=== PATIENT | male | born 1995 | race Caucasian/White ===

== ENCOUNTER 2021-07-26 05:24 | Observation (INO) | payer OTHER ==
[2021-07-26] MEDS ORDERED: SODIUM CHLORIDE FLUSH 0.9% 10 ML SYRINGE IVP PRN (05:35)
[2021-07-26 06:27] LABS: BASOPHILS % (AUTO) 0.3 %; EOSINOPHILS # (AUTO) 0.2 10^3/uL (0.0-0.7); EOSINOPHILS % (AUTO) 2.2 %; HCT - HEMATOCRIT 45.4 % (42.0-52.0); HGB - HEMOGLOBIN 16.6 g/dL (14.0-18.0); LYMPHOCYTES # (AUTO) 3.9 10^3/uL (1.5-3.5); LYMPHOCYTES % (AUTO) 51.4 %; MEAN CORPUSCULAR HEMOGLOBIN 30.6 pg (27.0-31.0); MEAN CORPUSCULAR HGB CONC 36.6 g/dL (32.0-36.0); MEAN CORPUSCULAR VOLUME 83.8 fL (80.0-94.0); MEAN PLATELET VOLUME 9.9 fL (7.4-11.4); MONOCYTES # (AUTO) 0.6 10^3/uL (0.0-1.0); NEUTROPHILS # (AUTO) 2.9 10^3/uL (1.5-6.6); NEUTROPHILS % (AUTO) 37.8 %; PLT - PLATELET COUNT 300 10^3/uL (130-450); RED BLOOD COUNT 5.42 10^6/uL (4.70-6.10); WHITE BLOOD COUNT 7.7 x10^3/uL (4.8-10.8)
[2021-07-26] MEDS ORDERED: ACETAMINOPHEN 325 MG TABLET PO PRN (06:43)
--- NOTE | 2021-07-26 06:48 | HISTORY & PHYSICAL EXAMINATION ---
Chief Complaint - Chief Complaint Chief Complaint: Shortness of breath History of Present Illness - Admitted From Admitted From:: [facility] - History Obtained From Records Reviewed: Outside records History obtained from: Patient, ER Physician - History of Present Illness HPI Comment/Other: This is a pleasant 25-year-old male with past medical history significant for type 2 diabetes mellitus who presents today complaining of shortness of breath. He presented to [facility] yesterday due to low oxygen saturations and dyspnea at home. He states he was diagnosed with COVID about 1 week ago. He has not received a booster dose but did receive 2 doses of Materna although he cannot recall exactly when his second dose was but he believes he is still not yet eligible for the booster dose. He states initially his symptoms began with nasal congestion and sore throat as well as chills. The dyspnea then progressed over the past couple of days. He had a pulse oximeter at home and he notices oxygen saturations were around 90% and so he went to [facility] at [place] yesterday. While he was there, it was noted that he was saturating in the mid 90s at rest but with any activity he would desaturate to the high 80s. He underwent a chest x-ray which showed no acute abnormalities. He then underwent a CT angiogram which showed no evidence of pneumonia or pulmonary embolism per the report. The patient states he was diagnosed with diabetes about 1 week ago and is currently on metformin 1000 mg twice a day. He states his blood sugars have been poorly controlled and have ranged in the low 300s. His A1c was 10.3% from what he can recall. He has no personal history of DVT or family history. He is a driver. He has no calf pain, leg edema. Given his hypoxia with activity, he was transferred to our facility for further management. History - Past Medical History Endocrine/Autoimmune: reports: Type 2 diabetes - Family & Social History Family History Comment/Other: Both of his parents and grandparents have a history of type 2 diabetes. Living arrangement: At home Living Situation: With family Social History Notes: He lives at home with his family. He is a driver. He smokes half a pack a day for a few years but quit 10 years ago. He has not drink alcohol. Denies illicit drug use. Meds/Allgy - Allergies Allergies/Adverse Reactions: Allergies Allergy/AdvReac Type Severity Reaction Status Date / Time Penicillins Allergy Hives Verified 07/26/21 06:44 bupropion AdvReac Unknown Verified 07/26/21 06:45 Review of Systems - Constitutional Constitutional: reports: Chills. denies: Fever - Ears, Nose & Throat Ears, Nose & Throat: reports: Nasal discharge, Nasal congestion, Sore throat - Cardiovascular Cariovascular: reports: Exertional dyspnea, Decr. exercise tolerance. denies: Chest pain, Edema - Respiratory Respiratory: reports: Cough, Sputum production, SOB with exertion. denies: SOB at rest - Gastrointestinal Gastrointestinal: denies: Abdominal pain, Nausea, Vomiting - Genitourinary Genitourinary: denies: Dysuria, Frequency, Hematuria - Musculoskeletal Musculoskeletal: denies: Limited range of motion, Muscle weakness - Integumentary Integumentary: denies: Rash - Neurological Neurological: denies: Focal weakness - Hematologic/Lymphatic Hematologic/Lymphatic: denies: Anemia, Blood clots, Bleeding tendencies - All Other Systems All Other Systems: reports: Reviewed and negative Prior Level of Functionality: He is independent with his ADLs. Exam - Vital Signs Reviewed Vital Signs: Yes Vital Signs: Vital Signs x48h Temp Pulse Resp BP Pulse Ox 07/26/21 06:44 36.8 C 105 H 22 154/97 H 97 - Physical Exam General Appearance: positive: No acute distress, Alert Eyes Bilateral: positive: Normal inspection, Conjunctivae nml ENT: positive: ENT inspection nml Neck: positive: Nml inspection Respiratory: positive: No respiratory distress, Other (Diminished.). negative: Wheezes, Rales Cardiovascular: positive: Tachycardia. negative: Irregularly irregular, Bradycardia, Systolic murmur Abdomen: positive: Non-tender, No distention. negative: Tenderness Skin: positive: Warm, Dry Extremities: positive: Full ROM, No pedal edema. negative: Calf tenderness, Manish's sign/cords Neurologic/Psychiatric: positive: Motor nml. negative: Disoriented to person, Disoriented to place, Disoriented to time Conclusion/Plan - Problem List (1) COVID-19 Conclusion/Plan: He has received 2 doses of Moderna. He is now admitted under observation as he was hypoxic with activity at the outside hospital. I reviewed the outside records including chest x-ray and CT angiogram which were both unremarkable. I walked him briefly in the room today and his saturations remained above 94%. We will give him Decadron 6 mg p.o. I will asked respiratory therapy to walk him more extensively this morning. If he has improving symptoms and there is no evidence of hypoxia then I am hopeful he may be discharged later this afternoon. (2) Type 2 diabetes mellitus with hyperglycemia Conclusion/Plan: This is a new diagnosis for him and his last A1c was greater than 10%. His blood glucose is currently poorly controlled despite the metformin. We discussed how the Decadron can exacerbate the hyperglycemia and that we will have him on insulin while he is hospitalized. We will start him on Lantus 10 units in the evening and sliding scale. Carb controlled diet. He will need close follow-up for further management of his diabetes on discharge. - Lab Results Lab results reviewed: Yes Luis Antonio Bones: 07/26/21 06:05 - Diagnostic Imaging Results Diagnostic Imaging Results: positive: Final report reviewed Core Measures - Anticipated LOS I expect patient to be DC'd or transferred within 96 hours.: Yes - Issues Hospital Issues and Management Plan: 25-year-old male with type 2 diabetes mellitus and COVID-19 infection transferred from outside hospital due to hypoxia with activity. - DVT/VTE - Prophylaxis VTE/DVT Device ordered at admit?: Yes VTE/DVT Prophylaxis med ordered at admit?: Yes
[2021-07-26] MEDS ORDERED: INSULIN ASPART 300 UNIT/3 ML PEN SUBQ SCH ×2 (08:00→12:00)
[2021-07-26] MEDS ORDERED: ENOXAPARIN 40 MG/0.4 ML SYRINGE SUBQ SCH (09:00)
[2021-07-26] MEDS ORDERED: SODIUM CHLORIDE FLUSH 0.9% 10 ML SYRINGE IVP SCH (09:00)
[2021-07-26] MEDS ORDERED: dexAMETHasone 4 MG TABLET PO SCH (09:00)
[2021-07-26 11:34] VITALS: BP 142/95
--- NOTE | 2021-07-26 11:47 | Discharge Plan ---
Discharge Plan Problem Reviewed?: Yes Disposition: Home, Self Care Condition: Fair Prescriptions: dexAMETHasone [Decadron] 6 mg PO DAILY #14 tablet Diet: Diabetic Activity Restrictions: Activity as Tolerated Shower Restrictions: No Driving Restrictions: No Health Concerns: You presented to [facility] because of shortness of breath and low oxygen. They felt that you needed to be admitted for COVID infection because of that low oxygen. Your chest x-ray was relatively clear. Since you have been here, we have treated you with steroids. You did not meet criteria for remdesivir. Today your oxygen level is 94% with walking around the room. And it is 98% with being at rest. As such we think you can go home and you just need to complete your steroid dosing. Plan of Treatment: You already had 2 doses of steroids while here. Yesterday and today. You need 8 more days. I have given you enough tablets to last the 8 days. Please take only 1-1/2 tablets a day and your last day will be August 04. Because you have diabetes with an A1c of 10%, expect that your diabetes will become even more uncontrolled with the steroids for Covid. Please see your primary care provider to discuss how you can control your sugar while you are on steroids. He may need to increase your metformin or you may need to go temporarily on insulin or he may be able to give you another pill such as glyburide or glipizide to help bring down your sugar. Remember that the A1c goal is to be less than 7%. Current recommendations are for that goal to be reached relatively quickly within the next 30 to 90 days. Care Goals: To get through this current infection of COVID without needing more hospitalizations or having complications Assessment: Patient states he understands care goals and will contact his primary care provider and do a telemedicine visit if he needs to as well No Smoking: If you smoke, Please STOP! Call for help. Follow-up with: Paolo Salcedo MD [Primary Care Provider] -
--- NOTE | 2021-07-26 11:52 | DISCHARGE SUMMARY ---
Discharge Summary Admit Date: 07/26/21 Discharge Date: 07/26/21 Discharging Provider: Jessica Bundy MD Primary Care Provider: Paolo Salcedo MD Code Status: Attempt Resuscitation Condition at Discharge: Fair Discharge Disposition: 01 Home, Self Care - DIAGNOSES Discharge Diagnoses with Status of Each Condition: 1. Acute hypoxia 2. COVID-19 infection 3. Type 2 diabetes mellitus, uncontrolled, with hyperglycemia, without complications, not on long-term insulin - HPI History of Present Illness: This is a pleasant 25-year-old male with past medical history significant for type 2 diabetes mellitus who presents today complaining of shortness of breath. He presented to [place] yesterday due to low oxygen saturations and dyspnea at home. He states he was diagnosed with COVID about 1 week ago. He has not received a booster dose but did receive 2 doses of Materna although he cannot recall exactly when his second dose was but he believes he is still not yet eligible for the booster dose. He states initially his symptoms began with nasal congestion and sore throat as well as chills. The dyspnea then progressed over the past couple of days. He had a pulse oximeter at home and he notices oxygen saturations were around 90% and so he went to [facility] at [place] yesterday. While he was there, it was noted that he was saturating in the mid 90s at rest but with any activity he would desaturate to the high 80s. He underwent a chest x-ray which showed no acute abnormalities. He then underwent a CT angiogram which showed no evidence of pneumonia or pulmonary embolism per the report. The patient states he was diagnosed with diabetes about 1 week ago and is currently on metformin 1000 mg twice a day. He states his blood sugars have been poorly controlled and have ranged in the low 300s. His A1c was 10.3% from what he can recall. He has no personal history of DVT or family history. He is a local announcer. He has no calf pain, leg edema. Given his hypoxia with activity, he was transferred to our facility for further management. - Past Medical History Endocrine/Autoimmune: reports: Type 2 diabetes - Family & Social History Family History Comment/Other: Both of his parents and grandparents have a history of type 2 diabetes. Living arrangement: At home Living Situation: With family Social History Notes: He lives at home with his family. He is a local announcer. He smokes half a pack a day for a few years but quit 10 years ago. He has not drink alcohol. Denies illicit drug use. - CONSULTS | PROCEDURES Procedures: July 25, 2021 chest x-ray from [facility] emergency room was reviewed. This is a written report and film is not available. The report states "no acute radiographic abnormality of the chest". - HOSPITAL COURSE Hospital Course: He has received 2 doses of Moderna in the last year. After a few hours here, his hypoxia resolved with steroids. We retested him and found him to be 96% on room air with a heart rate of 94. With ambulation, his O2 sat was 94% and heart rate 125. He walked 200 feet. He feels much improved from yesterday to today when he was hypoxic. We postulate that his early COVID infection caused the hypoxia but once he received steroids, steroids may have improved his situation. He is not a candidate for remdesivir and our facility does not store monoclonal antibody for treatment on the observation or inpatient status. CTA was reportedly negative for PE at [facility]. He is stable for discharge. Temperature is 37. Heart rate still remains elevated to 125 at times. Sinus rhythm. 97 is his heart rate at discharge. Blood pressure 142/95, respirations 22 and unlabored, and is 96% on room air. He is a 5 foot 10 inch young white male whose weight is 159 kg. Alert, oriented, no respiratory distress, sitting comfortably up in the bed controlling the TV remote. Eating 100% of the meals offered to him. Neck is supple. Lungs are clear to auscultation and percussion but with a large chest he has diminished breath sounds mainly in the lower bases. No crackles, rhonchi, wheezing. Completing full sentences. No use of accessory muscles. Regular rate and rhythm at this moment in time. The abdomen is obese, soft, nontender. Normal bowel sounds. Extremities without edema. I have set some goals for him at discharge. 1. Follow-up with his primary care provider as soon as possible because the Decadron that we are using for his COVID infection will destabilize any glucose control he has. He may need short term Lantus to get him through the next 8 to 10 days. He is discharged on Decadron 6 mg daily and will complete it august 04 2. As a diabetic, aim for 10% loss of body weight since the literature supports that even that small amount of weight loss can make all the difference in diabetic control. I explained to him that the [place] [employer] and the [employer] recommend aiming for control with goal achieved in the next 30 to 90 days. 3. Blood pressure consistently elevated during his stay. Range from 138 systolic to 154 systolic. He may be a candidate for an MISAEL inhibitor or an ARB. 4. Complete 8 more days of Decadron 6 mg p.o. daily. - ALLERGIES Allergies/Adverse Reactions: Allergies Allergy/AdvReac Type Severity Reaction Status Date / Time Penicillins Allergy Hives Verified 07/26/21 06:44 bupropion AdvReac Unknown Verified 07/26/21 06:45 - MEDICATIONS Home Medications: Ambulatory Orders Medication Instructions Recorded Confirmed Metformin HCl 1,000 mg PO BIDAC 07/26/21 07/26/21 Omeprazole 40 mg PO QDAC 07/26/21 07/26/21 Venlafaxine HCl [Effexor Xr] 150 mg PO DAILY 07/26/21 dexAMETHasone [Decadron] 6 mg PO DAILY #14 tablet 07/26/21 - LABS Result Diagrams: 07/26/21 06:05
[2021-07-26 13:09] LABS: ESTIMATED AVERAGE GLUCOSE 252 mg/dL (70-100); HEMOGLOBIN A1c% 10.4 % (4.27-6.07)
--- NOTE | 2021-07-26 13:34 | PHARMACY PROGRESS NOTE ---
- Best Possible Medication History Admit Date and Time: 07/26/21 0527 Processed by: Pharmacy Medication History completed: Yes Patient Interview: Pt unable to participate Secondary Source(s): Pharmacy records, Insurance records As the person ultimately responsible for medication therapy, providers are able to order a medication from an existing home medication list in [facility] via the "Reconcile Routine" prior to Confirmation of that medication by peer support specialist. Such practice is discouraged except when the physician, in their clinical judgment, deems that a medical need exists for a medication without regard to previous use.
[2021-07-26] MEDS ORDERED: INSULIN GLARGINE 300 UNIT/3 ML PEN SUBQ SCH ×2 (21:00)
== END 2021-07-26 12:54 | disposition home or self-care (01) ==
LOC: UNDOADMOB 05:26 → INTOOBSV 05:26 → MS2 05:26 → EDBD 05:26 → MS2 05:27
PROVIDERS: ADMIT Internal Medicine; ATTEND Specialist
DX: U07.1 COVID-19 (principal); R09.02 Hypoxemia; E11.65 Type 2 diabetes mellitus with hyperglycemia; Z79.84 Long term (current) use of oral hypoglycemic drugs; Z87.891 Personal history of nicotine dependence
CPT/HCPCS: 36415; 83036; 85025; 86140; 94761; 96372; A9270; G0378; J1650; J8540